=== PATIENT | male | born 1990 | race Caucasian/White ===

== ENCOUNTER 2019-07-17 12:34 | Emergency (ER) | payer SELFPAY ==
[~2019-07-17] VITALS: Ht 175.3 cm; Wt 76.0 kg
[2019-07-17 17:16] VITALS: BP 127/76
== END 2019-07-17 16:35 | disposition home or self-care (01) ==
LOC: ER 13:20
DX: H00.011 Hordeolum externum right upper eyelid (principal); H10.31 Unspecified acute conjunctivitis, right eye
CPT/HCPCS: 99283